=== PATIENT | female | born 1975 | race Caucasian/White ===

== ENCOUNTER 2020-04-16 19:38 | Emergency (ER) | payer MEDICARE, MEDICAID, SELFPAY ==
[2020-04-16 20:00] VITALS: BP 154/100; PULSE 107; RESP 18; TEMP 36.4; O2SAT 95; BMI 44.1
--- NOTE | 2020-04-16 20:12 | PC.NURSE ---
Pt states that she is a chronic pain medication patient. Pt states there was a falling out with her prior pain clinic and is waiting for the referral to her other pain clinic. Pt states she has ran out of her pain medication 3 days ago and is experiencing severe withdraw. Pt states she is suffering from nausea, pain and generalized sickness.
--- NOTE | 2020-04-16 20:21 | ED_ITS ---
HPI - Back Pain/Injury General: Chief Complaint: Back Pain/Injury Stated Complaint: back pain Time Seen by Provider: 04/16/20 20:05 History of Present Illness: HPI Narrative: 44-year-old female patient presents to the emergency department with back pain. She reports chronic back pain, 7 spinal surgeries, recently referred to pain management by her primary care provider. She reports took her last morphine, extended release and hydrocodone yesterday. She reports previous pain management physicians have, let her go . She reports pain to the upper thoracic area, reports scoliosis. States out of muscle relaxers, Soma . She reports has been referred to behavioral health, she denies suicidal, homicidal ideation thoughts or plans, she denies plans of harming herself today upon exam. She is requesting something for nausea as she feels that being out of her pain medication is causing her to be nauseated. She denies abdominal pain or any further symptoms. She reports her primary care provider has referred her to behavioral health for assistance with narcotic use. MD elicited complaint: back pain (Chronic upper back) Pertinent past history: prior back pain and back surgery Onset (ago): year(s) Timing: constant Severity: moderate Similar Symptoms Previously: Yes Quality: dull and aching Location: thoracic spine Radiation: none Exacerbating factors: movement Context: while lifting and turning/twisting Associated symptoms: Reports nausea; Deny abdominal pain, chills, dysuria, fever(s) or vomiting Review of Systems General: Reports: 10 or more systems reviewed and unremarkable except in HPI and below Const: Denies: fever(s), chills or diaphoresis Eyes: Denies: blurry vision or eye redness ENMT: Denies: throat pain, dental pain or disequilibrium Card: Denies: chest pain, palpitations or irregular heart rhythm Resp: Denies: dyspnea, productive cough, non-productive cough or wheezing GI: Reports: nausea; Denies: abdominal pain or vomiting : Denies: difficulty voiding or dysuria Musc: Reports: back pain; Denies: neck pain, extremity pain, muscle cramps or muscle weakness Skin/Breast: Denies: rash or pruritus Neuro: Denies: headache(s), weakness in extremities or behavioral changes Psych: Reports: anxiety; Denies: depression, mood swings, auditory hallucinations, suicidal ideation or homicidal ideation Kyle/Lymph: Denies: easy bruising PFSH ED PFSH: Medical History (Updated 04/16/20 @ 20:31 by STAS Delarosa) Chronic neck pain Depression Surgical History H/O neck surgery Family History Denies family history of Anesthesia complication Bleeding disorder Social History Smoking and tobacco status: current every day smoker Second hand smoke exposure: Yes Female Reproductive History: Date of last menstrual period: 04/07/20 Physical Exam Const: COMMON NORMALS: no acute distress, patient oriented x3, healthy appearing and alert GENERAL APPEARANCE: cooperative, comfortable and well hydrated HENMT: COMMON NORMALS: normocephalic, Normal external nose present and moist oral mucous membranes HEAD & SCALP: normocephalic NOSE: Normal external nose present Eye: COMMON NORMALS: Equal, round and reactive pupils present and EOMs intact bilaterally GENERAL EYE: appearance normal, both eyes and all related structures PUPIL: Yes Equal, round and reactive pupils present Neck/C-Spine: COMMON NORMALS: full ROM and no lymphadenopathy GENERAL: Yes normal visual inspection and Yes trachea midline CERVICAL SPINE: Yes cervical ROM normal Lymph: LYMPHATIC: no lymphadenopathy noted Chest: COMMONS NORMALS: normal inspection of the chest Resp: COMMON NORMALS: normal respiratory effort and clear to auscultation bilaterally AUSCULTATION: clear to auscultation bilaterally Cardio: COMMON NORMALS: regular rhythm, S1 normal heart sound present, S2 normal heart sound present and Peripheral pulses 2+ throughout RHYTHM: regular rhythm HEART SOUNDS: S1 normal heart sound present and S2 normal heart sound present PERIPHERAL PULSES: Peripheral pulses 2+ throughout GI: COMMON NORMALS: Normal to inspection, nondistended, normoactive bowel sounds present, Soft to palpation and non-tender INSPECTION: Yes normal to inspection PALPATION: Yes Soft to palpation : COMMON NORMALS: Yes no CVA tenderness BLADDER/KIDNEY EXAM: Yes no CVA tenderness Back/Pelvis: COMMON NORMALS: no CVA tenderness and thoracic and lumbar spine normal to inspection THORACIC SPINE/UPPER BACK: Yes thoracic ROM normal, No thoracic spinal tenderness and Yes paraspinal muscle spasm Thoracic paraspinal muscle spasm: right LUMBAR SPINE/LOWER BACK: Yes normal to inspection, Yes lumbar ROM normal, No lumbar spinal tenderness, No straight leg raise positive right and No straight leg raise positive left Extremity: COMMON NORMALS: normal to inspection and capillary refill normal Neuro: COMMON NORMALS: patient oriented x3 and no focal motor deficits SENSORIUM/ORIENTATION: Yes alert Psych: COMMON NORMALS: mental status grossly normal, Normal thought process present and cooperative ACTIVITY/MOTOR BEHAVIOR: Yes appropriate eye contact THOUGHT PROCESS: Normal thought process present Skin: COMMON NORMALS: no rashes or lesions noted and turgor normal GENERAL SKIN EXAM: no rashes or lesions noted and turgor normal Course ED course: Discussed with patient narcotic withdrawal, unfortunately we are not able to provide narcotic refills to the emergency department for chronic pain. She verbalized understanding. She is requesting something for muscle spasms and nausea. I have advised her to follow-up with [facility] in the morning at 8 AM for potential walk-in appointment to help with withdrawal. She has pain management appointment that is pending, discussed/counseled her in regards to chronic narcotic use. She verbalized understanding and agrees to attempt appointment at [facility] as she has previous referral to [facility] for such by her primary care provider Vital Signs: Vital signs: Vital Signs Temperature 97.5 F L 04/16/20 20:00 Pulse Rate 107 H 04/16/20 20:00 Respiratory Rate 18 04/16/20 20:00 Blood Pressure 154/100 04/16/20 20:00 Pulse Oximetry 95 04/16/20 20:00 Discharge Plan Discharge Patient Disposition: Home Clinical Impression: Narcotic dependence Thoracic back pain Qualifiers: Chronicity: chronic Back pain laterality: right Qualified Code(s): M54.6 - Pain in thoracic spine Condition: Stable Prescriptions: New cyclobenzaprine 10 mg tablet 10 mg PO TID PRN (Reason: muscle spasm) Qty: 10 RF: 0 Zofran 4 mg tablet 4 mg PO QID PRN (Reason: nausea and vomiting) Qty: 10 RF: 0 No Action morphine 15 mg tablet extended release 15 mg PO Q4H RF: 0 carisoprodol [Soma] 350 mg tablet 350 mg PO BID RF: 0 ibuprofen [IBU] 800 mg tablet 800 mg PO TID RF: 0 esomeprazole magnesium [Nexium] 20 mg capsule,delayed release(DR/EC) 20 mg PO DAILY RF: 0 hydrocodone-acetaminophen 10-325 mg tablet 2 tab PO Q4H PRNRF: 0 Discharge Orders: Discharge Order (Routine); Ordered 04/16/20 Ordered By: Daniella Arriaga Referrals: Delores Phoenix FNP [Primary Care Provider] - Discharge Diet: Usual diet Discharge Activity: Resume usual activity Patient Instructions: Opioid Withdrawal (ED), Chronic Back Pain (ED) Activity Restrictions/Additional Instructions: You will need to follow-up with your primary care provider for other alternatives for pain medication Advised to follow-up with behavioral health at 8 AM, walk-ins accepted if cancellations occur for opiate withdrawal. Drink plenty of fluids Follow-up with pain management at the direction of your primary care physician. Coding Level of Care Code ED Radiation Therapist for [facility] Fwd Exam Comprehensive
[2020-04-16] MEDS: cyclobenzaprine 10 mg Tablet PO (20:58)
[2020-04-16] MEDS: ondansetron 4 MG Tablet PO (20:58)
== END 2020-04-16 21:02 | disposition home or self-care (01) ==
PROVIDERS: Emergency Provider Nurse Practitioner Family; PCP Nurse Practitioner Family
DX: M54.6 Pain in thoracic spine (principal); F11.20 Opioid dependence, uncomplicated; Z79.891 Long term (current) use of opiate analgesic; F17.210 Nicotine dependence, cigarettes, uncomplicated
CPT/HCPCS: 12345; 99281; 99283; Q0162

== ENCOUNTER 2020-11-27 13:03 | Outpatient (CLI) | payer MEDICARE, MEDICAID, SELFPAY ==
--- NOTE | 2020-11-27 13:13 | XR_ITS ---
WS: [id number] Thoracic spine, 4 views, 11/27/2020 Clinical Data: M54.9 - Dorsalgia, unspecified Comparison: None. Findings: No compression fractures are seen. The disc heights are normal. The paravertebral regions are unremarkable. There is minimal anterior osteoarthritic spurring of the upper thoracic vertebral bodies. There are clips in the right lower quadrant from a cholecystectomy. The patient's had anterior cervical disc fusion at C5-C6. 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
--- NOTE | 2020-11-27 13:13 | XR_ITS ---
WS: [id number] Cervical spine, 5 views, 11/27/2020 Clinical Data: M54.2 - Cervicalgia Comparison: None. Findings: No compression fractures are seen. There is an anterior cervical disc fusion at C5-C6 with artificial disc material inserted.. There is no prevertebral soft tissue swelling. The odontoid is un remarkable. The soft tissues of the neck and the lung apices are normal. XR/XR cervical spine 3V* [id number] Impression: Anterior cervical disc fusion at C5-C6.
== END 2020-11-27 13:04 | disposition home or self-care (01) ==
LOC: RAD 13:10
PROVIDERS: PCP Nurse Practitioner Family; Visit Provider Nurse Practitioner Family
DX: M54.2 Cervicalgia (principal); M54.6 Pain in thoracic spine; M47.814 Spondylosis without myelopathy or radiculopathy, thoracic region; M43.22 Fusion of spine, cervical region
CPT/HCPCS: 72040; 72072

== ENCOUNTER → 2022-01-06 10:44 | Outpatient (BNVA) | payer MEDICARE, MEDICAID, SELFPAY | PROVIDERS: PCP Nurse Practitioner Family; Visit Provider Nurse Practitioner Family | DX: F32.9 Major depressive disorder, single episode, unspecified (principal); R53.83 Other fatigue; E78.5 Hyperlipidemia, unspecified | CPT/HCPCS: 80053; 80061; 84443 ==

== ENCOUNTER → 2022-06-01 10:34 | Outpatient (BNVA) | payer MEDICARE, MEDICAID, SELFPAY | PROVIDERS: PCP Nurse Practitioner Family; Visit Provider Nurse Practitioner Family | DX: I10 Essential (primary) hypertension (principal) | CPT/HCPCS: 80053; 80061 ==

== ENCOUNTER → 2024-04-16 11:03 | Outpatient (BNVA) | payer MEDICARE, MEDICAID, SELFPAY | PROVIDERS: PCP Nurse Practitioner Family; Visit Provider Nurse Practitioner Family | DX: I10 Essential (primary) hypertension (principal); Z12.4 Encounter for screening for malignant neoplasm of cervix | CPT/HCPCS: 80053; 80061; 84443; 87070; 87205; 88175 ==

== ENCOUNTER → 2024-07-25 11:19 | Outpatient (BNVA) | payer MEDICARE, MEDICAID, SELFPAY | PROVIDERS: PCP Nurse Practitioner Family; Visit Provider Nurse Practitioner Family | DX: I10 Essential (primary) hypertension (principal); R53.83 Other fatigue | CPT/HCPCS: 80053; 80061; 85025 ==

== ENCOUNTER → 2025-02-28 10:16 | Outpatient (BNVA) | payer MEDICARE, MEDICAID, SELFPAY | PROVIDERS: PCP Nurse Practitioner Family; Visit Provider Nurse Practitioner Family | DX: E78.2 Mixed hyperlipidemia (principal) | CPT/HCPCS: 80053; 80061; 85025 ==

== ENCOUNTER → 2025-06-03 08:35 | Outpatient (BNVA) | payer MEDICARE, MEDICAID, SELFPAY | PROVIDERS: PCP Nurse Practitioner Family; Visit Provider Nurse Practitioner Family | DX: I10 Essential (primary) hypertension (principal) | CPT/HCPCS: 80053; 80061; 84443 ==

== ENCOUNTER 2025-06-06 07:50 | Outpatient (CLI) | payer MEDICARE, MEDICAID, SELFPAY ==
--- NOTE | 2025-06-06 08:00 | MM_ITS ---
WS: [id number] VIEWS: MLO and CC views both breasts. 3D digital tomosynthesis is also included in this exam. No priors. Findings: The breasts are almost entirely fatty. No sign of suspicious mass, tumor calcification or architectural distortion. MM/MM scr BI tomosynthesis [id number] Impression: BI-RADS: 2 - Benign. FOLLOW-UP: 1 Year Follow-up This mammogram was also analyzed by the Computer Aided Detection System [employer] Medical Radiation Therapist.
== END 2025-06-06 07:51 | disposition home or self-care (01) ==
LOC: RAD 07:50
PROVIDERS: PCP Nurse Practitioner Family; Visit Provider Nurse Practitioner Family
DX: Z12.31 Encounter for screening mammogram for malignant neoplasm of breast (principal); R92.313 Mammographic fatty tissue density, bilateral breasts
CPT/HCPCS: 77063; 77067